=== PATIENT | male | born 1955 | race Caucasian/White ===

== ENCOUNTER 2016-06-09 17:10 | Emergency (ER) | payer OTHER | END 2016-06-09 18:08 | disposition home or self-care (01) | LOC: FER 17:10 | DX: S92.345A Nondisplaced fracture of fourth metatarsal bone, left foot, initial encounter for closed fracture (principal); E11.9 Type 2 diabetes mellitus without complications; I10 Essential (primary) hypertension; Z88.2 Allergy status to sulfonamides; W19.XXXA Unspecified fall, initial encounter | CPT/HCPCS: 73630; 99283 ==

== ENCOUNTER 2021-08-30 15:23 | Emergency (ER) | payer OTHER ==
[2021-08-30 17:02] LABS: BASOPHIL 0.6 % (0-2); EOSINOPHIL 2.6 % (0-7); HCT 39.8 % (42.0-52.0); HGB 11.7 g/dl (13.2-18.0); LYMPHOCYTE 16.6 % (15-48); MCH 24.2 pg (25.0-31.0); MCHC 29.4 g/dL (32.0-36.0); MCV 82.2 fL (78.0-100.0); MONOCYTE 10.3 % (0-12); MPV 9.2 fL (6.0-9.5); NEUTROPHIL 69.5 % (41-80); NRBC 0; PLT 249 K/uL (150-400); RBC 4.84 M/uL (4.70-6.00); RDW 21.9 % (11.5-14.0); WBC 8.1 K/uL (4.0-10.5)
[2021-08-30 17:12] LABS: INR 1.12 (0.9-1.2); PROTHROMBIN TIME 13.8 SECONDS (11.8-13.4)
[2021-08-30 17:13] LABS: PTT 33.7 SECONDS (24.4-34.7)
[2021-08-30 17:20] LABS: CREATININE 1.1 mg/dL (0.67-1.17); POTASSIUM 4.3 mmol/L (3.5-5.1)
[2021-08-30 17:21] LABS: ALBUMIN 2.3 g/dL (3.4-5.0); GLOBULIN (CALCULATION) 4.9 g/dL; TOTAL PROTEIN 7.2 g/dL (6.4-8.2)
[2021-08-30 17:22] LABS: BILIRUBIN - TOTAL 0.4 mg/dL (0.2-1.0)
== END 2021-08-30 18:10 | disposition home or self-care (01) ==
LOC: FER 15:23
PROVIDERS: Emergency Medicine
DX: I83.891 Varicose veins of right lower extremity with other complications (principal); I10 Essential (primary) hypertension; E10.9 Type 1 diabetes mellitus without complications; Z88.2 Allergy status to sulfonamides
CPT/HCPCS: 36415; 80053; 85025; 85610; 85730; 99283